=== PATIENT | female | born 1985 | race Caucasian/White ===

== ENCOUNTER 2021-09-10 13:08 | Day surgery (SDC) | payer OTHER ==
[2021-09-10] MEDS ORDERED: Lactated Ringers 1,000 ML IV ONE (13:56)
[2021-09-10] MEDS ORDERED: CLINDAMYCIN-D5W 900 MG/50 ML*** 900 MG/50 ML BAG IV ONE (13:56)
[2021-09-10] MEDS ORDERED: Levofloxacin 500MG/100ML D5W 500 MG/100 ML BAG IV ONE (13:56)
[2021-09-10] MEDS ORDERED: Lactated Ringers 1,000 ML IV SCH (14:00)
[2021-09-10] MEDS ORDERED: Levofloxacin 500MG/100ML D5W 500 MG/100 ML BAG IV SCH (14:00)
[2021-09-10] MEDS ORDERED: CLINDAMYCIN-D5W 900 MG/50 ML*** 900 MG/50 ML BAG IV SCH (14:00)
[2021-09-10 14:16] LABS: Hematocrit 42.8 % (35-47); Hemoglobin 13.9 gm/dl (12.0-16.0); Mean Cell Volume 91.6 fl (78-100); Mean Corpuscular Hemoglobin 29.8 pg (26-32); Mean Corpuscular Hgb Concent. 32.5 g/dl (32-36); Platelet Count 259 K/mm3 (150-450); Red Blood Count 4.67 M/mm3 (4.1-5.4); Red Cell Distribution Width 12.6 % (11.5-14.0); White Blood Count 5.6 K/mm3 (4.0-10.5)
[2021-09-10 14:23] LABS: ANION GAP 13.5 MEQ/L (5-15); BLOOD UREA NITROGEN 11 mg/dL (7-17); CHLORIDE 102 mmol/L (98-107); Calcium 9.2 mg/dL (8.4-10.2); Carbon Dioxide 26 mmol/L (22-30); Creatinine 1 0.71 mg/dL (0.52-1.04); EST GLOMERULAR FILTRATION RATE > 60.0 ML/MIN; Glucose 108 mg/dL (74-106); Potassium 3.9 mmol/L (3.5-5.1); SODIUM 138 mmol/L (137-145)
[2021-09-10] MEDS ORDERED: EXPAREL 133 MG/10 ML VIAL IJ ONE (16:35)
[2021-09-10] MEDS ORDERED: Versed 2 MG/2 ML Injection ONE (17:21)
[2021-09-10] MEDS ORDERED: SUBLIMAZE 100 MCG/2 ML ONE ×3 (17:21→18:45)
[2021-09-10] MEDS ORDERED: DIPRIVAN 200 MG/20 ML IV ONE (17:21)
[2021-09-10] MEDS ORDERED: Triple Antibiotic Ointment ONE (18:30)
[2021-09-10] MEDS ORDERED: NORCO 5/325 MG PO PRN (19:35)
[2021-09-10] MEDS ORDERED: NORCO 5/325 MG ONE (19:37)
[2021-09-10] MEDS ORDERED: MORPHINE SULFATE 2 MG INJ IV ONE (20:00)
[2021-09-10 20:34] VITALS: O2SAT 100
[2021-09-10 20:42] VITALS: BP 144/93; PULSE 78
--- NOTE | 2021-09-20 10:46 | OP ---
PROCEDURE DATE/TIME: 09/10/2021 1721 PREOPERATIVE DIAGNOSIS: Acute thrombosed external hemorrhoids. POSTOPERATIVE DIAGNOSIS: Moderate hemorrhoidal disease and acutely thrombosed external hemorrhoids. PROCEDURES: 1) Rectal exam under anesthesia. 2) Left anterior external thrombosed hemorrhoidectomy. 3) Right posterior internal and external hemorrhoidal column hemorrhoidectomy. PROCEDURE PERFORMED BY: Brittani Tripathi M.D. COMPLICATIONS: None. ESTIMATED BLOOD LOSS: Minimal. ANESTHESIA: General. SPECIMEN: Hemorrhoidal tissue. HISTORY: This is a 35-year-old female who presented acutely due to thrombosed hemorrhoids. She has had long standing hemorrhoid disease with intermittent acute issues with the hemorrhoids. However, this episode is not getting better like it normally does and she would like for surgical intervention. Risks, benefits, alternatives, conservative treatment, surgical treatment were all discussed with the patient in detail preoperatively. She was examined personally. An H&P was completed. She does have a thrombosed hemorrhoid. She also has other enlarged hemorrhoidal columns. We did discuss preoperatively we would do an exam under anesthesia. Plan for external hemorrhoidectomy and then potentially removing additional hemorrhoid tissue based on what we identified at the procedure. She understood, agreed and wanted to proceed. Consent was obtained. DESCRIPTION OF PROCEDURE: She was taken to the operative suite. Anesthesia induced. She is prepped and draped in the usual sterile fashion. A complete time out performed. She was placed in lithotomy position. After a time out, I first did perianal inspection and then a rectal exam. Preoperatively our exam was limited due to pain and discomfort. Here we can see there is small but thrombosed anterior external hemorrhoid that appears to be the culprit of her pain which we did see preoperatively as well. She also has enlarged hemorrhoids throughout. However, she has a significantly enlarged right posterior internal and external hemorrhoid column that is more enlarged than the remainder of the hemorrhoidal disease that she has. Her hemorrhoidal disease is near circumferential. At this time we then turned our attention to the large, angry-appearing, right posterior internal and external hemorrhoids that I thought did need to be removed. We carefully incised at the anal canal and elevated the hemorrhoidal tissue off of the muscle sparing the skin. I was then able to place a hemorrhoidal clamp to encompass the remainder of the hemorrhoidal column to include the entire internal portion as well and then we excised this with the Metzenbaum and then with an [id number] 3-0 chromic suture this is sutured and hemostatic. We used a 4-0 chromic along the skin to allow this to lie more flat. There was no narrowing, no stricture, no excessive skin was taken. We spared as much as skin as possible. Please note the patient does have a petite anal canal and throughout the procedure I used a small Hill retractor due to this. At this point, we then turned our attention to the left anterior thrombosed hemorrhoid this is a smaller hemorrhoid but it is thrombosed this is what appeared to be causing her pain and consistent with our preoperative exam. We then incised at the anal margin and then carefully dissected free the hemorrhoidal vessel taking a minimum amount of overlying skin here also as possible. Once this was carefully dissected free, we placed our clamp excised the thrombosed hemorrhoid, sutured this with a 3-0 chromic. Skin was closed with 4-0 chromic running suture. The patient tolerated this part of the procedure well also. She does have remaining hemorrhoidal disease although it does appear to be chronic and milder than the hemorrhoids that have been removed. There are no other thrombosed hemorrhoids. I do not see any other acute issues or masses of concern. The patient is hemostatic. She was taken to the postoperative area in stable condition and I have discussed all of her instructions with her family as well as her findings. She has been given a prescription for pain, anxiety and recommended to be placed on bowel regimen. All instructions have been given and she will be following up with me also as an outpatient.
== END 2021-09-10 20:50 | disposition home or self-care (01) ==
LOC: SDC 13:08
PROVIDERS: ATTEND Surgery
DX: K64.5 Perianal venous thrombosis (principal); Z79.899 Other long term (current) drug therapy
CPT/HCPCS: 36415; 80048; 84703; 85027; 88304; J1956; J2250; J2270; J2704; J3010; A9270-GY

== ENCOUNTER 2021-12-10 10:55 | Day surgery (SDC) | payer OTHER ==
[2021-12-10] MEDS ORDERED: Lactated Ringers 1,000 ML IV SCH (11:00)
[2021-12-10] MEDS ORDERED: Lactated Ringers 1,000 ML IV ONE ×2 (12:41→14:18)
[2021-12-10] MEDS ORDERED: DIPRIVAN 200 MG/20 ML IV ONE ×2 (13:53→14:11)
[2021-12-10] MEDS ORDERED: Versed 2 MG/2 ML Injection ONE (13:53)
[2021-12-10 15:27] VITALS: O2SAT 100
[2021-12-10 16:13] VITALS: BP 143/98; PULSE 74
--- NOTE | 2021-12-11 09:47 | OP ---
PROCEDURE DATE/TIME: 12/10/2021 1353 PREOPERATIVE DIAGNOSIS: Constipation and bright red blood per rectum. POSTOPERATIVE DIAGNOSES: 1) Sigmoid mass (submucosal). 2) Rectal polyp. PROCEDURES: 1) Colonoscopy with cold forceps polypectomy and cold forceps biopsy. 2) Tattoo placement. PROCEDURE PERFORMED BY: Brittani Tripathi M.D. COMPLICATIONS: None. ESTIMATED BLOOD LOSS: Minimal. ANESTHESIA: MAC. SPECIMENS: 1) Submucosal mass biopsy. 2) Rectal polyp. HISTORY: This is a 36-year-old female who presents for colonoscopy. She had bright red blood per rectum which has resolved but she does continue to have constipation and a colonoscopy has been recommended. Risks, benefits, alternatives, H&P and consent have all been reviewed with her and confirmed. She would like to proceed. DESCRIPTION OF PROCEDURE: She was taken to the endoscopy suite, laid in the left lateral decubitus position. A complete time out performed. First, a rectal exam was done. The patient does have some remaining hemorrhoidal disease. Her hemorrhoidal disease overall is significantly better. She does have two very small external hemorrhoids that are mildly enlarged and one internal hemorrhoid that is mildly enlarged. The scope is then inserted gently advanced to the level of the cecum. The prep was satisfactory. The appendiceal orifice and ileocecal valve were visualized. The valve looked normal. I was not able to intubate the valve due to the angulation but the valve itself from what we can see looks normal. The scope is then carefully withdrawn taking a circumferential view. The ascending and transverse colon were normal. The descending colon looked normal. In the sigmoid colon, the patient had two very tiny diverticula. She also had approximately 2 x 2.5 cm dangling submucosa mass that appeared to be hanging ball that appeared to be obstructing her at her angulation here in her sigmoid partially. There was not a full obstruction here at all this is only appeared to be partial and I am very easily able to get my scope around here. I think this may be the source of the patient's constipation. There were also a couple of very superficial subtle ulcerations here and we biopsied this. My suspicion is that this is a lipoma. The biopsies did not appear deep enough to be going into the tissue but it does feel very soft and mobile and again it is only partially obstructing not fully obstructing. The remainder of the sigmoid outside of what we discussed was normal and in the rectum there was a 1 mm polyp in the distal rectum and this was taken with cold forceps in entirety and sent for pathology. It looked hemostatic. There were no other findings. Everything was hemostatic. The scope is withdrawn. The patient tolerated the procedure very well. There were no immediate complications. I have discussed all the findings with her . I also waited for her to wake up postoperatively and discuss the findings with her. We will be getting further imaging studies and then we will go from there for treatment.
== END 2021-12-10 16:00 | disposition home or self-care (01) ==
LOC: SDC 10:55
PROVIDERS: ATTEND Surgery
DX: K63.9 Disease of intestine, unspecified (principal); K59.00 Constipation, unspecified; K62.5 Hemorrhage of anus and rectum; K57.30 Diverticulosis of large intestine without perforation or abscess without bleeding
CPT/HCPCS: 84703; 88305; J2250; J2704